=== PATIENT | male | born 1935 | race Caucasian/White ===

== ENCOUNTER → 2017-05-24 | Outpatient (CLI) | payer BC ==
[~2017-05-24] MED LIST: ATEN-173 PO; LISI-725 PO; MISCCAP66; MULT-506 PO; OPTIRAY 320 IV PRN; PRLSR20 PO; TRIA0.02 TOP
--- NOTE | 2017-05-24 12:25 | DIAGNOSTIC IMAGING REPORT ---
ABD/PELVIS IV AND ORAL CONT CLINICAL HISTORY: 82 years-old Male presenting with colon cancer, follow-up. TECHNIQUE: Multidetector CT of the abdomen and pelvis was performed after the administration of oral and intravenous contrast. IV contrast: 93 mL of Optiray 320. A dose lowering technique was used consistent with the principles of ALARA (as low as reasonably achievable). COMPARISON: 04/25/2016. CT DOSE (mGy.cm): The estimated cumulative dose is 1280.39 inclusive of the chest CT. FINDINGS: Engine Pilot topogram: Unremarkable. Lung bases: Trace emphysematous changes may be present. Minimal bandlike opacities likely atelectasis. Mild multichamber enlargement of the heart. Aortic valve and coronary artery calcification. No pericardial or pleural effusion. Liver: Congenital hypoplasia of the medial segments of the left hepatic lobe. No focal lesion. Patent hepatic vasculature. Biliary: No intrahepatic or extrahepatic biliary ductal dilatation. Normal gallbladder. Pancreas: Moderate parenchymal atrophy. Spleen: Normal. Adrenal glands: Nodular thickening of the left adrenal gland, unchanged. Kidneys and ureters: Multiple well-defined hypodensities in both kidneys, greater on the right, likely cysts. Additionally, prominent right parapelvic cyst. No hydronephrosis. Nonobstructing 5 mm calculus in the distal left ureter. Bladder: Mild sequential bladder wall thickening could suggest chronic outlet obstruction. Pelvic organs: Prostate enlargement likely secondary to benign prostatic hyperplasia. Bowel: Diverticulosis of the sigmoid colon. Mild stool burden. Postsurgical changes of right hemicolectomy with patent ileocolic anastomosis. No bowel obstruction. Diffuse gastric wall thickening is suggested, although this may be due to underdistention. Peritoneal cavity: No free fluid or intraperitoneal gas. Vasculature: Atherosclerosis of the normal caliber abdominal aorta. IVC patent. Lymph nodes: No enlarged lymph nodes in the abdomen or pelvis. Abdominal wall: Ovoid 3.5 cm fluid collection associated with the cutis in the subcutaneous fat of the right ventral abdomen, likely sebaceous cyst, unchanged. Musculoskeletal: Degenerative changes of the pubic symphysis, sacroiliac joints, spine. No destructive osseous lesion. Significant anterior vertebral body height loss of L1 and, to a lesser degree, T12, new from prior. No gross soft tissue component to suggest an underlying lesion. Mild osteopenia. IMPRESSION: 1. Postsurgical changes of right hemicolectomy. No evidence of metastatic disease in abdomen or pelvis. No lymphadenopathy. 2. Interval development of compression fractures of L1 and to a lesser extent T12. No gross evidence of underlying lesion to suggest a pathologic compression fracture. 3. Nonobstructing 5 mm calculus in the distal left ureter. 4. Suggestion of diffuse gastric wall thickening, which could suggest gastritis. However, this may be due to underdistention. Electronically signed by: Carmine Mix M.D. 05/24/2017 12:24 PM Dictated Date/Time: 05/24/2017 12:15 PM
--- NOTE | 2017-05-24 12:34 | DIAGNOSTIC IMAGING REPORT ---
CHEST CT WITH CONTRAST CT DOSE: 1280.39 mGycm HISTORY: Colon cancer. TECHNIQUE: Multiaxial CT images of the chest were performed following the intravenous administration of contrast. A dose lowering technique was utilized adhering to the principles of ALARA. COMPARISON: Chest 04/25/2016. FINDINGS: The central airways are patent. No pleural effusions. No pneumothorax. Mild emphysema and mild central bronchiectasis, unchanged. Stable 3 mm subpleural nodule abutting the right major fissure on image 111. Stable 3 subpleural nodule within the right middle lobe on image 223. Punctate calcified granuloma within the base of the right middle lobe. A few bibasilar linear densities suggesting atelectasis. No suspicious lytic or blastic osseous lesions. Mild superior endplate compression fracture at T12 and a moderate compression fracture at L1. These are new from the prior study. However, these are likely chronic given the lack of adjacent paravertebral soft tissue swelling. Bilateral adrenal gland thickening persists. Normal spleen and visualized liver. Multinodular thyroid gland is again noted. Dominant nodule within the left lobe posteriorly measures 1.7 cm. This remains unchanged. No mediastinal or hilar lymphadenopathy. Normal caliber thoracic aorta. The central pulmonary arteries are patent. IMPRESSION: 1. No evidence for metastatic disease within the chest. 2. Stable subcentimeter pulmonary nodules within the right lung are likely benign. No new pulmonary nodules. 3. Compression deformities at T12 and L1 which are likely old. 4. Stable multinodular thyroid gland. Electronically signed by: Miles Zamudio M.D. 05/24/2017 12:33 PM Dictated Date/Time: 05/24/2017 12:25 PM
== END | disposition home or self-care (01) ==
LOC: C.CTS 11:37
PROVIDERS: ATTEND Colon & Rectal Surgery
DX: Z85.038 Personal history of other malignant neoplasm of large intestine (principal); Z98.890 Other specified postprocedural states; S32.019A Unspecified fracture of first lumbar vertebra, initial encounter for closed fracture; S22.080A Wedge compression fracture of T11-T12 vertebra, initial encounter for closed fracture; X58.XXXA Exposure to other specified factors, initial encounter; N20.1 Calculus of ureter